=== PATIENT | female | born 1950 | race Caucasian/White ===

== ENCOUNTER 2025-06-02 13:52 | Outpatient (AMB) | payer MEDICARE, OTHER, SELFPAY ==
[2025-06-02 13:54] VITALS: BP 148/73; PULSE 85; RESP 16; O2SAT 98; BMI 27.4
--- NOTE | 2025-06-02 13:54 | MHC.OFFVIS ---
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 She reports experiencing knee pain for over 20 years, which she attributes to osteoarthritis and has not improved since surgeries. The pain is described as constant, aching, stabbing, throbbing, and sharp, with a severity ranging from 7 to 8 out of 10 depending on activity and position. The pain worsens with movement, walking, climbing stairs, and weather changes, while cold, heat, and topical applications provide some relief. The pain is better in the morning and more severe with activity or ambulation. She has undergone two knee replacements over the past 10 years, but continues to experience significant pain. Previous interventions include physical therapy, chiropractic manipulation, TENS unit, and counseling for depression and anxiety, with limited relief. She has been using oxycodone rarely for severe pain only which she reports is the most effective in managing her chronic pain, allowing her to be less symptomatic and more functional. Her medical history includes depression, anxiety, sleep apnea, vitamin B12 and D deficiencies, heart valve replacement, gastric bypass surgery, cataract surgeries, and a right humerus fracture with osteoporosis. She has also experienced sudden sepsis pneumonia in recent months and plans to undergo upper endoscopy and colonoscopy. Patient is currently on Zepbound injections for weight loss and reports significant weight loss with medication and dietary adjustments. - Onset: Pain has been present for over 20 years. - Quality: Described as constant, aching, stabbing, throbbing, and sharp. - Severity: Ranges from 7 to 8 out of 10 depending on activity and position. - Location: Bilateral knees, with the right knee being more painful due to increased use. - Radiation: Pain is described as radiating and causing tightness. - Exacerbating factors: Movement, walking, climbing stairs, weather changes. - Relieving factors: Cold, heat, and topical applications. Most helpful is rare use of oxycodone. - Impact: Affects daily activities, personal care, and functioning. - Affect: Pain impacts mood, contributing to depression and anxiety. - Analgesia: Previously used oxycodone with some relief; current pain level is 7 to 8 out of 10. - Adverse Effects: No specific adverse effects from pain medications discussed. - Activities of Daily Living: Pain affects daily activities, personal care, and functioning. - Aberrant Drug Related Behaviors: No aberrant behaviors reported; patient uses oxycodone responsibly. [facility] Medical History (Updated 06/02/25 @ 22:56 by AUTUMN Yeager) Chronic knee pain after total replacement of both knee joints GERD (gastroesophageal reflux disease) Obesity Mitral valve disorder Aortic valve disorder Pain of right lower extremity HTN (hypertension) Generalized hyperhidrosis Pneumonia Bronchospasm Murmur Sleep apnea Vitamin D deficiency Osteoarthritis Anemia Depression Anxiety Surgical History (Updated 06/02/25 @ 22:56 by AUTUMN Yeager) History of total bilateral knee replacement (~2013) History of cataract surgery History of heart valve replacement (~2020) History of gastric bypass (~2001) Hx of cholecystectomy (~1987) History of arthroplasty of knee Review of Systems Const Details: - Musculoskeletal: Reports bilateral knee pain, tightness, and heaviness. - Neurological: Reports pain described as aching, stabbing, throbbing, and sharp. - Psychological: Reports depression and anxiety. - Respiratory: Reports sleep apnea, denies current respiratory symptoms. All systems reviewed & are unremarkable except as noted in HPI and below Physical Exam Vital Signs: Last Vital Signs Pulse 85 06/02/25 13:54 Resp 16 06/02/25 13:54 BP 148/73 H 06/02/25 13:54 Pulse Ox 98 06/02/25 13:54 Oxygen Delivery Method Room Air 06/02/25 13:54 BMI result Body Mass Index 27.4 General: Appears afebrile. Alert and oriented. Mood and affect appropriate. Follows and participates in conversation appropriately. Respiratory effort is unlabored. No cough. Able to transition from sit to stand unassisted. Ambulates with bilaterally normal heel strike and toe off. Extrem General: Yes capillary refill normal, Yes no clubbing, cyanosis or edema and Yes no calf tenderness Right lower extremity: knee (Limited ROM due to pain. Well healed incision with normal scarring.) Details: normal to inspection, tenderness Location: of the patella, of the medial joint line and of the lateral joint line and crepitus; no swelling, no ecchymosis, no deformity and no unusual warmth Left lower extremity: knee (Limited ROM due to pain. Well healed incision with normal scarring.) Details: normal to inspection, tenderness Location: of the patella, of the medial joint line and of the lateral joint line and crepitus; no swelling, no ecchymosis, no deformity and no unusual warmth Results Reviewed Results Reviewed: No imaging reports are available for review today. X-rays completed at [facility], results not detailed in referral notes. Assessment & Plan Assessment & Plan (1) Chronic knee pain after total replacement of both knee joints: Code(s): M25.561 - Pain in right knee; M25.562 - Pain in left knee; G89.28 - Other chronic postprocedural pain; Z96.653 - Presence of artificial knee joint, bilateral Category: Medical (2) Chronic pain syndrome: Code(s): G89.4 - Chronic pain syndrome Category: Medical Plan The plan for managing the patient's bilateral knee pain includes considering interventional procedures such as peripheral nerve stimulation. We also discussed genicular RFA which is not typically approved post-knee replacement. Informational pamphlets were provided to patient today. Patient is somewhat hesitant towards interventional treatments and notes oxycodone has been most effective for pain management. I have informed patient I do not offer opioid prescribing at this time. Patient will review Sprint PNS trial procedure details at home and discuss with family and will notify our office if she is interested to proceed with diagnostic femoral nerve blocks to assess candidacy for these interventions. All questions and concerns have been answered and patient agreed with the plan. Follow up as needed. Patient was informed and verbally consented to the use of an ambient scribe for clinic note documentation during this visit. Coding Level of Care Code New Pt Level 4 (38954) Diagnoses Chronic knee pain after total replacement of both knee joints M25.561; M25.562; G89.28; Z96.653 Chronic pain syndrome G89.4
--- OUTSIDE RECORDS SUMMARY | 2025-06-02 15:07 | XMS_ITS | Clinical Summary ---
Author Organization Formerly [facility] Address [address] [place] [address] Care Team Providers Care Industrial Engineering Director Name Role Phone Provider, Cardiology Unavailable Unavailable Talita Mena MD Primary Care Provider [phone] Allergies Active Allergy Reactions Criticality Noted Date Comments Morphine Itching Low 03/25/2021 Medications ALPRAZolam (XANAX) 1 MG tablet Take 1 mg by mouth daily. Pt states she may take another tab if needed in afternoon Active DULoxetine (CYMBALTA) 30 MG capsule Take 30 mg by mouth daily. Active clonazePAM (KlonoPIN) 1 MG tablet Take 1 mg by mouth daily. Active Turmeric (QC TUMERIC COMPLEX PO) Take 1 tablet by mouth daily. Active b complex vitamins tablet Take 1 tablet by mouth daily. Active multivitamin Tab tablet Take 1 tablet by mouth daily. Active BIOTIN PO Take by mouth daily. Active omega-3 fatty acids (FISH OIL) 1000 MG Cap capsule Take 1,000 mg by mouth daily. Active cholestyramine resin (QUESTRAN) 4 g packet Take 1 packet by mouth 2 (two) times a day. 1 Active nystatin (MYCOSTATIN) ointment as needed. 1 Active buPROPion (WELLBUTRIN SR) 100 MG 12 hr tablet Take 100 mg by mouth daily. 1 Active traZODone (DESYREL) 50 MG tablet Take 50 mg by mouth nightly. Active psyllium (KONSYL,METAMU CIL) 100 % Pack packet Take 1 packet by mouth daily. Active Ascorbic Acid (Vitamin C) 500 MG Cap Take by mouth daily. Active Vitamin D3 (CHOLECALCIFER OL) 125 MCG (5000 UT) Tab Take 1 tablet by mouth daily. Active Onabotulinumto xinA (BOTOX IJ) Inject as directed. For hyperhidrosis every 3 months Active acetaminophen (TYLENOL) 325 MG tabletIndicati ons:S/P AVR (aortic valve replacement) Take 2 tablets (650 mg total) by mouth 4 times daily (every 6 hours) as needed for mild pain or fever. 1 Active aspirin 81 MG chewable tabletIndicati ons:S/P AVR (aortic valve replacement) Chew 1 tablet (81 mg total) daily. Do not start before April 24, 2021. 1 Active ferrous sulfate 325 (65 FE) MG EC tabletIndicati ons:S/P AVR (aortic valve replacement) Take 1 tablet (325 mg total) by mouth daily. Take 2 hours before or 4 hours after acid reducers. Do not start before April 24, 2021. 30 tablet 1 Active HYDROmorphone (DILAUDID) 2 MG tabletIndicati ons:S/P AVR (aortic valve replacement) Take 1 tablet (2 mg total) by mouth 4 times daily (every 6 hours) as needed for severe pain. Max Daily Amount: 8 mg 20 tablet 1 Active Active Problems Problem Noted Date Diagnosed Date Severe aortic stenosis 04/06/2021 Overview (04/06/2021): Added automatically from request for surgery [id number] Social History Tobacco Use Types Packs/Day Years Used Date Smoking Tobacco: Never Smokeless Tobacco: Never Alcohol Use Standard Drinks/Week Comments Yes 0 (1 standard drink = 0.6 oz pur e alcohol) rarely Comments Unknown Sex and Gender Information Value Date Recorded Sex Assigned at Not on file Legal Sex Female 10:53 AM EDT Gender Identity Female 04/05/2021 4:40 PM EDT Sexual Orientation Heterosexual (straight) 04/05 4:40 PM EDT Last Filed Vital Signs Vital Sign Reading Time Taken Comments Blood Pressure 112/56 04/23/2021 12:00 PM EDT Pulse 90 04/23/2021 12:00 PM EDT Temperature 37.2 C (98.9 F) 04/23/2021 8:05 AM EDT Respiratory Rate 20 04/23/2021 12:00 PM EDT Oxygen Saturation 92% 04/23/2021 12:00 PM EDT Inhaled Oxygen Concentration - - Weight 89.4 kg (197 lb 3.2 oz) 04/23/2021 3:30 A M EDT Height 157.5 cm (5' 2 ) 04/12/2021 3:38 PM EDT Body Mass Index 36.07 04/12/2021 3:38 PM EDT Plan of Treatment Health Maintenance Due Date Last Done Comments Hepatitis C Virus Screening 1950 DTaP/Tdap/Td Vaccines (1 - Tdap) 1967 Pneumococcal Vaccines 50+ (1 of 2 - PCV) 1967 Zoster (Shingles) Vaccine (1 of 2) 1998 DXA Bone Density (Females,Ages 65 and older) 2013 RSV Vaccine 60 years and older and Patients (1 - 1-dose 75+ series) 2023 COVID-19 Vaccine ( season) 2024 12/31/2020, 12/07/2020 Influenza Vaccine 06/12/2025 07/01/2020, , 08/09/2018, Additional history exists Hepatitis B Vaccines Aged Out No long er eligible based on patient's age to complete this topic Medical Devices Implanted Type Area Sweetbread Trimmer Device Identifier Shelf Expiration Date Model / Serial / Lot [id number] Valve Aortic Inspiris Resilia 21mm Bvn Pericard Rhonda Rbr Lflt - [id number] Implanted:Qty: 1 on 04/20/2021 by Sonali Green MD at [facility] Valve N/A: Heart [employer] ANDIE 02/02/2025 [id number] / [id number] / [id number] Insurance MEDICARE PART A & B [facility] Advance Directives * Full Code (Latest Code Status on File) Date Activated Date Inactivated Comments 04/20/2021 10:39 AM * Full Code Date Activated Date Inactivated Comments 04/14/2021 7:50 AM 04/20/2021 5:24 AM Care Teams Industrial Engineering Director Relationship Specialty Start Date End Date Talita Mena MD [address] [place] [id number] PCP - General Internal Medicine 04/14/21 Provider, Cardiology Foreign Exchange Position Clerk 03/25/21
--- OUTSIDE RECORDS SUMMARY | 2025-06-02 15:07 | XMS_ITS | Data Portability ---
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 Since our prior session patient reports no change in symptom control and function. Clinically associated pain with ROM and resisted motions are not changing. Patient reports that HEP and home care liaison have helped her have less knee pain. Balance continues to be an issue that she needs support with. We will assess if adjustment to self care and home exercise as above help patient in progression toward their goals. Follow up: next week. Progress LE strengthening. Patient Goals: To strengthen knees and be able to get around with less pain, improve balance. Clinical Goals: 1. Demonstrate symmetric pain free active, passive and resisted motions of bilateral knees. 2. Demonstrate sufficient muscular endurance to meet functional demands. 3. Improve OPTIMAL score by 25% to demonstrate ability to perform daily activities with fewer limitations and less pain. 4. Demonstrate independence with HEP for lower extremity strengthening and flexibility, dynamic balance activities, and self-care techniques. Treatment Plan: Patient to return for 10 visits over 12 weeks. We expect significant change in pain, impairment and function in this time frame. Treatment to Include: Therapeutic exercise, manual therapy, patient education, HEP (initiated), modalities PRN. [email or web address] Not available 08/19/2019 14:06:18 08/26/2019 08/26/2019 4 PT sessions since initial evaluation on 07/21/19. Since our prior session patient reports no change in symptom control and function. Clinically associated pain with ROM and resisted motions are not changing. Patient reports that her symptoms have not improved significantly, though she is not performing HEP regularly. We will assess if adjustment to self care and home exercise as above help patient in progression toward their goals. Follow up: next week. Progress LE strengthening. Patient Goals: To strengthen knees and be able to get around with less pain, improve balance. Clinical Goals: 1. Demonstrate symmetric pain free active, passive and resisted motions of bilateral knees. 2. Demonstrate sufficient muscular endurance to meet functional demands. 3. Improve OPTIMAL score by 25% to demonstrate ability to perform daily activities with fewer limitations and less pain. 4. Demonstrate independence with HEP for lower extremity strengthening and flexibility, dynamic balance activities, and self-care techniques. Treatment Plan: Patient to return for 10 visits over 12 weeks. We expect significant change in pain, impairment and function in this time frame. Treatment to Include: Therapeutic exercise, manual therapy, patient education, HEP (initiated), modalities PRN. [email or web address] Not available 08/26/2019 13:44:56 09/01/2019 09/01/2019 5 PT sessions since initial evaluation on 07/21/19. Since our prior session patient reports improvement in symptom control and function. Clinically associated pain with ROM and resisted motions are not changing. Patient reports that she is performing HEP more regularly, modifications have helped her be more consistent. We will assess if adjustment to self care and home exercise as above help patient in progression toward their goals. Follow up: next week. Progress LE strengthening. Patient Goals: To strengthen knees and be able to get around with less pain, improve balance. Clinical Goals: 1. Demonstrate symmetric pain free active, passive and resisted motions of bilateral knees. 2. Demonstrate sufficient muscular endurance to meet functional demands. 3. Improve OPTIMAL score by 25% to demonstrate ability to perform daily activities with fewer limitations and less pain. 4. Demonstrate independence with HEP for lower extremity strengthening and flexibility, dynamic balance activities, and self-care techniques. Treatment Plan: Patient to return for 10 visits over 12 weeks. We expect significant change in pain, impairment and function in this time frame. Treatment to Include: Therapeutic exercise, manual therapy, patient education, HEP (initiated), modalities PRN. [email or web address] Not available 09/01/2019 14:40:15 09/15/2019 09/15/2019 6 PT sessions since initial evaluation on 07/21/19. Since our prior session patient reports improvement in symptom control and function. She is able to do more day to day, and is starting to feel a little bit stronger. Clinically associated pain with ROM and resisted motions are improving. Patient was able to perform hip flex and abd during clock step without holding on for balance during HEP review in clinic. She continues to verbalize anxiety about her balance, will experiment with reducing need for touch-down assistance during exercises within safe limits. We will assess if adjustment to self care and home exercise as above help patient in progression toward their goals. Follow up: next week. Progress LE strengthening. Patient Goals: To strengthen knees and be able to get around with less pain, improve balance. Clinical Goals: 1. Demonstrate symmetric pain free active, passive and resisted motions of bilateral knees. 2. Demonstrate sufficient muscular endurance to meet functional demands. 3. Improve OPTIMAL score by 25% to demonstrate ability to perform daily activities with fewer limitations and less pain. 4. Demonstrate independence with HEP for lower extremity strengthening and flexibility, dynamic balance activities, and self-care techniques. Treatment Plan: Patient to return for 10 visits over 12 weeks. We expect significant change in pain, impairment and function in this time frame. Treatment to Include: Therapeutic exercise, manual therapy, patient education, HEP (initiated), modalities PRN. [email or web address] Not available 09/15/2019 14:06:55 10/02/2019 10/02/2019 7 PT sessions since initial evaluation on 07/21/19. Since our prior session patient reports no change in symptom control and function. She has been preoccupied with preparations for an extended visit to family in [place], and has not been consistent with HEP. Clinically associated pain with ROM and resisted motions are not changing. Patient feels that she has necessary tools to continue to improve her LE strength and balance while she is away for the winter. She will return to care in March should she require further intervention. Patient Goals: To strengthen knees and be able to get around with less pain, improve balance. (Not met 10/02/19 - pt will continue to work on these goals independently) Clinical Goals: 1. Demonstrate symmetric pain free active, passive and resisted motions of bilateral knees. (Not met 10/02/19) 2. Demonstrate sufficient muscular endurance to meet functional demands. (Met 10/02/19) 3. Improve OPTIMAL score by 25% to demonstrate ability to perform daily activities with fewer limitations and less pain. (Not met 10/02/19) 4. Demonstrate independence with HEP for lower extremity strengthening and flexibility, dynamic balance activities, and self-care techniques. (Met 10/02/19) Treatment Plan: Patient to return for 10 visits over 12 weeks. We expect significant change in pain, impairment and function in this time frame. Treatment to Include: Therapeutic exercise, manual therapy, patient education, HEP (initiated), modalities PRN. [email or web address] Not available 10/02/2019 16:09:04 Plan of Treatment Reminders Order Date Submit Date Provider Last Modified By Organization Details Last Modified Time Details Appointments None record ed. Lab None record ed. Referral None record ed. Procedures None record ed. Surgeries None record ed. Imaging None record ed. Medication Orders None record ed. Patient TargetsNo targets recorded. Patient InstructionsNo instructions recorded. Reason for Referral None Reported. Procedures Surgical History Date Name Laterality Status Provider Name and Address Organization Details Recorded Time 9 96261: Therapeutic Exercise completed Evelin Mendoza, PT [address] [place] [address], [phone], [facility] 10/02/2019 07:43:43 9 Treatment and Advice completed Evelin Mendoza, PT [address] [place], [address], [facility] 10/02/2019 16:09:27 9 89003: Therapeutic Exercise completed Evelin Mendoza, PT [address] [place], [address], [facility] 09/15/2019 08:47:10 9 Treatment and Advice completed Evelin Mendoza, PT [address] [place], [address], [facility] 09/15/2019 13:59:06 9 04515: Therapeutic Exercise completed Evelin Mendoza, PT [address] [place], [address], [facility] 09/01/2019 13:21:58 9 Treatment and Advice completed Evelin Mendoza, PT [address] [place], [address], [facility] 09/01/2019 14:39:04 9 49633: Therapeutic Exercise completed Evelin Mendoza, PT [address] [place], [address], [facility] 08/26/2019 07:54:54 9 Treatment and Advice completed Evelin Mendoza, PT [address] [place], [address], [facility] 08/26/2019 15:34:21 9 05469: Therapeutic Exercise completed Evelin Mendoza, PT [address] [place], [address], [facility] 08/19/2019 08:24:21 9 Treatment and Advice completed Evelin Mendoza, PT [address] [place], [address], [facility] 08/19/2019 14:04:33 9 92683: Therapeutic Exercise completed Evelin Mendoza, PT [address] [place], [address], [facility] 08/07/2019 13:34:16 9 Treatment and Advice completed Evelin Mendoza, PT [address] [place], [address], [facility] 08/08/2019 09:11:44 9 48548: Therapeutic Exercise completed Evelin Mendoza, PT [address] [place], [address], [facility] 07/28/2019 14:07:29 9 Treatment and Advice completed Evelin Mendoza, PT [address] [place], [address], [facility] 07/28/2019 14:06:56 9 Physical Activity Counselling completed Evelin Mendoza, PT [address] [place], [address], [facility] 07/21/2019 13:08:44 9 01891: PT Eval Low Complexity completed Evelin Mendoza, PT [address] [place], [address], [facility] 07/22/2019 10:44:47 9 Treatment and Advice completed Evelin Mckeonalex, PT [address] [place], [address], [facility] 07/21/2019 13:44:59 Imaging Results None recorded. Procedure Notes None recorded. Medical Equipment None Reported. Allergies No known drug allergies Medications Name Sig Start Date Stop Date Status Note LastModified by Organization Details LastModified Time amoxicillin 500 mg capsule active Not Available Not Available Not Available citalopram 40 mg tablet Take 1 tablet every day by oral route. active Not Available Not Available No t Available trazodone 50 mg tablet Take 1 tablet 3 times a day by oral route. active Not Available Not Available No t Available clonazepam 1 mg tablet active Not Available Not Available No t Available tramadol 50 mg tablet active Not Available Not Available No t Available hydrocodone 7.5 mg-acetamino phen 325 mg tablet active Not Available Not Available Not Available nystatin-tri amcinolone 100,000 unit/g-0.1 % topical cream active Not Available Not Available Not Available diclofenac potassium 50 mg tablet active Not Available Not Available No t Available gabapentin 100 mg capsule active Not Available Not Available Not Available Transderm-Sc op 1 mg over 3 days transdermal patch active Not Available Not Available Not Available clonazepam 1 mg disintegrati ng tablet Place 1 tablet twice a day by translingua l route. active Not Available Not Available No t Available cholestyrami ne (with sugar) 4 gram oral powder Take 1 scoop twice a day by oral route. active Not Available Not Available Not Available cholestyrami ne (with sugar) 4 gram powder for susp in a packet active Not Available Not Available Not Available bupropion HCl XL 300 mg 24 hr tablet, extended release Take 1 tablet every day by oral route. active Not Available Not Available No t Available oxycodone 10 mg tablet active Not Available Not Available No t Available Vitals None Recorded Social History None recorded. Functional Status None recorded. Mental Status None recorded. Family History Nothing Reported. Medical History No medical history recorded. Gynecological HistoryNo gynecological history recorded. 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 gave handout. start hot compresses bid x 10 min with lid massage to follow. Start Systane Ultra qid x 1 month, then 2-6 x day thereafter . RTC 1 month in no improvemen t in vision. consider glasses change in no improvemen t with dry eye treatment. 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 Myopia [id number] mild glasses rx change. treat dry eye first, then consider new glasses if not satisfied with vision. pt ed. [id number] Evelin Mendoza, PT [facility], [address] [address] 07/21/2019 12:57:18 07/23/2019 07:59:32 Pain in right knee [id number] 96407 M25.561 Pain in left knee 865516 9089 42661 M25.394 [id number] Evelin Mendoza, PT [facility], [address] [address] 07/28/2019 13:33:59 07/28/2019 16:06:56 Pain in right knee [id number] 14445 M25.561 Pain in left knee 563643 5843 73206 M25.316 [id number] Evelin Mendoza, PT [facility], [address] [address] 08/07/2019 13:29:57 08/07/2019 14:08:35 Pain in right knee [id number] 76848 M25.561 Pain in left knee 251938 0101 19457 M25.633 [id number] Evelin Mendoza, PT [facility], [address] [address] 08/19/2019 13:28:49 08/19/2019 15:09:22 Pain in right knee [id number] 29813 M25.561 Pain in left knee 987931 3908 50297 M25.780 [id number] Evelin Mendoza, PT [facility], [address] [address] 08/26/2019 13:30:34 08/27/2019 08:28:10 Pain in right knee [id number] 35850 M25.561 Pain in left knee 262013 1290 19637 M25.055 [id number] Evelin Mendoza PT [facility], [address] [address] 09/01/2019 13:33:23 09/01/2019 15:51:07 Pain in right knee [id number] 95539 M25.561 Pain in left knee 344865 2449 13589 M25.632 [id number] Evelin Mendoza PT [facility], [address] [address] 09/15/2019 13:26:50 09/15/2019 16:00:52 Pain in right knee [id number] 20644 M25.561 Pain in left knee 734059 8628 35128 M25.553 [id number] Evelin Mendoza PT [facility], [address] [address] 10/02/2019 15:34:42 10/03/2019 07:06:43 Pain in right knee [id number] 82658 M25.561 Pain in left knee 127676 4796 66345 M25.562 Health Concerns Section Related Observation LastModified by Organization Detai ls LastModified Time None Recorded Concern Status LastModified by Organization Details LastModified Time None Recorded Advance Directives Directive None Recorded Payers Insurance Date Sequence Insurance Name Policy Number Policy Lao Covered Member ID Lao Member ID Guarantor Name 11/18/2014 [facility] Oren Glaser [id number] Lorri Glaser 09/29/2019 2 [facility] (INDEMNITY) [id number] Oren Glaser [id number] Lorri Glaser 07/17/2019 1 [place] [facility] Lorri Martinez [place] [id number] Lorri Glaser 09/29/2019 1 [facility] Lorri Glaser [id number] Lorri Glaser Notes Date Note Type Note Provider Name and Address Organization Details Recorded Time 08/19/2019 text/html Patient reports that she spent a week in [place], got to spend a lot of time with friends. Symptoms are improving, she thinks HEP has been helpful and chiropractic helpful as well. Balance exercises continue to be quite challenging. Evelin Mendoza, PT [address] [place], [address], [facility] 08/19/2019 14:06:41 08/26/2019 text/html Patient reports that she has been doing well for the past week. She hasn't experienced any significant change in her symptoms, admits that she is not performing the HEP regularly. Patient anxious that she is not making enough progress. Evelin Mendoza, PT [address] [place], [address], [facility] 08/26/2019 15:35:15 09/01/2019 text/html Patient reports that the modifications to her HEP last visit has been helpful in increasing her consistency. She continues to feel that her balance is awful. Evelin Mendoza, PT [address] [place], [address], [facility] 09/01/2019 14:40:55 09/15/2019 text/html Patient reports that HEP has been going well. She feels that she is seeing results from performing HEP regularly as she is able to accomplish more day to day without extra concentration. Her knees are sore today because she went to [facility] for the weekend, walked a lot more than usual. Evelin Mendoza, PT [address] [place], [address], [facility] 09/15/2019 14:07:07 10/02/2019 text/html Patient reports that she is exhausted today, has been preparing for extended visit to family. Significant vit D deficiency revealed during most recent wellness visit. Today is her last appointment for a while, she will continue to work on her HEP while she is away. Evelin Mendoza, PT [address] [place], [address], [facility] 10/02/2019 16:09:41 OBGyn Episode No OBEpisode recorded.
== END 2025-06-02 14:54 | disposition home or self-care (01) ==
LOC: HO.PMC 13:53
PROVIDERS: PCP Internal Medicine; Referring Provider Internal Medicine; Visit Provider Nurse Practitioner Family
DX: M25.561 Pain in right knee (principal); M25.562 Pain in left knee; G89.28 Other chronic postprocedural pain; Z96.653 Presence of artificial knee joint, bilateral; G89.4 Chronic pain syndrome
CPT/HCPCS: 99204

== ENCOUNTER → 2025-06-02 13:52 | Outpatient (BNVA) | payer MEDICARE, OTHER, SELFPAY | PROVIDERS: PCP Internal Medicine; Referring Provider Internal Medicine; Visit Provider Nurse Practitioner Family | DX: M25.561 Pain in right knee (principal); M25.562 Pain in left knee; G89.29 Other chronic pain; Z96.653 Presence of artificial knee joint, bilateral | CPT/HCPCS: 99202 ==